=== PATIENT | male | born 1955 | race Caucasian/White ===

== ENCOUNTER 2023-07-28 18:22 | Emergency (ER) | payer MEDICARE, OTHER ==
[~2023-07-28] VITALS: Ht 182.9 cm; Wt 77.3 kg
[2023-07-28 18:26] VITALS: TEMP 98.7
[2023-07-28] MEDS: LIDOcaine 1% 30ml preserv. free vial SQ STA (19:38)
[2023-07-28] MEDS: cephalexin 500mg capsule PO ONE (20:26)
[2023-07-28] MEDS: TETanus/Pertussis (Acell)/Diphther VAC/PF (Tdap-Adult) 0.5ml syringe IMVAC ONE (20:26)
[2023-07-28 20:31] VITALS: BP 171/107; PULSE 80; RESP 16; O2SAT 98
[2023-07-28] MEDS ORDERED: CEPH-585 PO (22:41)
== END 2023-07-28 23:01 | disposition home or self-care (01) ==
LOC: ER 18:22
DX: S62.631A Displaced fracture of distal phalanx of left index finger, initial encounter for closed fracture (principal); S61.213A Laceration without foreign body of left middle finger without damage to nail, initial encounter; Z79.2 Long term (current) use of antibiotics; X58.XXXA Exposure to other specified factors, initial encounter; Y93.89 Activity, other specified; Y92.89 Other specified places as the place of occurrence of the external cause; Y99.8 Other external cause status
CPT/HCPCS: 12002; 29130; 73130; 90715; 99283; A6222; A6402; G0008; J2001; J7030; Z7610; 90471; A6449; J3490